=== PATIENT | female | born 1980 | race African-American/Black ===

== ENCOUNTER 2021-11-20 15:35 | Emergency (ER) | payer SELFPAY ==
[2021-11-20 18:18] VITALS: BP 152/77
== END 2021-11-20 19:20 | disposition left against medical advice (07) ==
LOC: ED 15:35
DX: O26.891 Other specified pregnancy related conditions, first trimester (principal); M54.2 Cervicalgia; Z53.21 Procedure and treatment not carried out due to patient leaving prior to being seen by health care provider